=== PATIENT | female | born 1955 | race Caucasian/White ===

== ENCOUNTER 2017-04-15 18:23 | Observation (INO) | payer MEDICAID ==
[~2017-04-15] VITALS: Ht 157.5 cm; Wt 67.6 kg
[~2017-04-15 18:23] MED LIST: AEROCHAMBER1 DEV IH; ALBUTEROL2 PUFFS/17 IN; AZITHROMYCIN250 MG PO; BENADRYL 50MG C50 MG PO; CEFDINIR 300MG300 MG PO; CELEXA40 MG PO; HYDROCODONE1 TABLET PO; HYDROXYZINE HCL25 MG PO; MEDROL 4MG. DOSE4 MG PO; METOCLOPRAMIDE10 M2 PO; NAPROSYN500 M1 PO; NOMEDS *; OMEPRAZOLE40 MG PO; PHENERGAN 25MG.25 M1 PO; PHENERGAN 25MG.25 MG PR; PREDNISONE 10MG10 MG PO; PREDNISONE 20MG20 MG PO; PREVACID 30MG C30 M1 PO; ROBAFEN AC 10480 ML PO; ROBAXIN-750750 MG PO; ZANTAC 150150 MG PO
[2017-04-15 18:24] VITALS: BP 129/76
[2017-04-15] MEDS ORDERED: ASPIRIN 81MG TA81 MG PO (18:31)
--- NOTE | 2017-04-15 18:32 | Emergency Room Report ---
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 N Clinical Suspician of Infection? N Mental Status: 1 - Regular (Normal Baseline) Sepsis Risk:Low Sepsis Risk Have you (or family members/close friends) recently traveled outside the [place]? N If Yes, where/when: Have you had exposure to infectious disease within the past month? N TB? Other? Specify: Source patient, RN notes reviewed, old records Exam Limitations no limitations Comment pt with new onset of ant chest pain this am with pressure quality with sl inc with deep insp but no known ht disease, no card eval in past and no trauma/fever / Cardiac Chest Pain Chest pain indicative of cardiac Yes Timing/Duration 4-6 hours, constant Severity/Quality moderate, pressure Location central Chest Pain Radiation back Activities at Onset light activity Nitro Today/Relief no nitro taken today Aspirin Treatment Today no aspirin today Beta eris treatment today no beta eris taken Cardiac risk factors + family history, HTN controlled Prior Workup/Intervention no prior cardiac workup Timing/Duration this afternoon Severity moderate ALLERGIES Coded Allergies: codeine (06/20/16) ranitidine (06/20/16) Home Medications Reported Medications Lansoprazole (Prevacid) 30 MG PO DAILY ASPIRIN (Aspirin) 81 MG PO DAILY History Medical History General CAD? No Angina: No RI: No Hypertension? No Hyperlipidemia? No CHF? No DVT? No PE? No COPD? No Asthma? Yes Anemia? No GERD? No Gastric ulcers? No GI Bleed? No Hernia? Yes Thyroid Problems? No Hypothyroidism? No CVA? No Seizures? No Diabetes? No Insulin Dependent: No Insulin Pump: No Home FSBS? No Renal Insuffiency? No End Stage Renal Disease? No UTI? No Stones? No BPH? No GB Disease: Yes Nephritic Syndrome? No Asplenia? No Hepatitis? No Sickle Cell Disease? No Arthritis? No Migraines? No Cataracts? No Glaucoma? No MRSA? No HIV? No TB? No Anxiety? No Depression? No Cancer? Yes Site: UTERUS More? No Immunization Hx DT/Tetanus 1-4 YRS Flu Refused Pneumonia Refuses Surgical Hx Previous Surgery?Y GALLBLADDER TUBAL LIGATION HYSTERECTOMY Family History Family Hx Diabetes No CAD No Hypertension No Hyperlipidemia No Cancer Yes TB No Social History Smoking Hx Smoker: Current Every Day Smoker Tobacco: Yes Type Cigarettes Packs/day < 1 Pack Alcohol Alcohol: No Drugs none Review of Systems All Other Systems Reviewed and Negative Constitutional denies fever Eyes denies drainage ENT denies: ear discharge, epistaxis, throat pain. Respiratory see HPI, denies cough, shortness of breath, denies wheezing Cardiovascular see HPI, chest pain, denies palpitations, denies syncope Gastrointestinal denies abdominal pain, denies diarrhea, denies vomiting Genitourinary denies: dysuria, frequency, hesitancy, hematuria. Musculoskeletal denies back pain, denies joint pain, denies joint swelling, denies neck pain Skin denies rash Psychiatric/Neurological denies headache, denies seizure Physical Exam Vital Signs Vital Signs Date Time Temp Pulse Resp B/P Pulse O2 O2 Flow FiO2 Ox Delivery Rate 04/15 2055 98.2 68 18 133/67 97 04/15 2014 98.1 86 18 126/65 98 04/15 1935 98.1 72 18 122/66 94 04/15 1824 98.1 86 18 129/76 95 - WBC >12,000 or <4,000 or 10% bands? 2 or more SIRS Criteria Met? B/P:126/65 MAP:93 Creatinine >2.0? UA output<0.5ml/kg/hr for 2 hrs? Platelet count >100,000? Lactate >2.0mmol/1? INR >1.2 or PTT > than 60 sec? Evidence of Organ Dysfunction? Provider documented clinical suspician of infection? N Sepsis Criteria Count: 0 Sepsis Risk: Low Sepsis Risk General Appearance no apparent distress Eye Exam - bilateral eye PERRL, bilateral eye EOMI Ear, Nose, Throat normal ENT inspection Neck supple Respiratory Status No: respiratory distress. Lung Sounds bilateral: rhonchi. 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 No Results/Orders Laboratory Tests 04/15/171899: Sodium 142, Potassium 4.0, Chloride 104, Carbon Dioxide 28, BUN 13, Creatinine 1.1 H, Estimated Creat Clear 58, Estimated GFR (MDRD) 51 L, Glucose 105, Calcium 8.9, Total Bilirubin 0.4, AST 19, ALT 28, Alkaline Phosphatase 124 H, Creatine Kinase 152, CK-MB (CK-2) Rel Index 0.7, CK and CKMB Interp 1.0, Troponin I < 0.02, Total Protein 7.9, Albumin 4.0, Globulin 3.9 H, Albumin/ Globulin Ratio 1.0 L, D-Dimer 623 *H, WBC 8.5, RBC 5.37, Hgb 15.0, Hct 45.6, MCV 84.9, RDW 13.6, Plt Count 252, MPV 7.2 L, Gran % 66.4, Gran # 5.6, Lymphocytes % 25.3, Monocytes % 5.1, Eosinophils % 2.6, Basophils % 0.6, Lymphocytes # 2.2, Monocytes # 0.4, Eosinophils # 0.2, Basophils # 0.1, PUBS MCHC 32.8, MCH 27.9 Current Medication Orders Sig/Darline Start time Last Medication Dose Route Stop Time Status Admin Iopamidol 60 ML ONCE ONE 04/15 2115 UNV 04/15 IV 04/15 Sodium Chloride 20 ML ONCE ONE 04/15 2115 UNV 04/15 IV 04/15 Sodium Chloride 20 ML ONCE ONE 04/15 2115 UNV 04/15 IV 04/15 Sodium Chloride 10 ML ONCE ONE 04/15 2115 UNV 04/15 IV 04/15 Nitroglycerin 1 IN ONCE ONE 04/15 193 CAN TP 04/15 193 Nitroglycerin 0 .STK-MED ONE 04/15 1927 DC .ROUTE Aspirin 325 MG ONCE ONE 04/15 190 DC 04/15 PO 04/15 190 1856 Nitroglycerin 1 IN ONCE ONE 04/15 190 DC 04/15 TP 04/15 190 1857 Sodium Chloride 10 ML PRN PRN 04/15 190 AC IV 04/16 1848 Nitroglycerin 0 .STK-MED ONE 04/15 185 DC .ROUTE Aspirin 0 .STK-MED ONE 04/15 185 DC .ROUTE Orders Procedure Date/time Status DIET-NOTHING BY MOUTH 04/16 B Active Decision to admit 04/15 2112 Active CTA-CHEST 04/[address] SCAN REQ 04/15 2018 Complete D-DIMER 04/15 194 Complete 12 LEAD EKG-MICHAEL (INITIAL) 04/15 1848 Active ELECTROCARDIOGRAM REQUEST 04/15 184 Active IV SALINE LOCK 04/15 1848 Active COMPLETE METABOLIC PANEL 04/15 1848 Complete CBC WITH AUTO DIFF 04/15 1848 Complete CARDIAC ENZYMES 04/15 1848 Complete CHEST(2 VIEWS-NOT PORTABLE) 04/15 1827 Active 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 ST/[facility] chgs XRAY/CT/US XRAY/CT/US 1 XRAY chest XR interpretation by reviewed by me Xray Results abnormal (nonspecific) XRAY/CT/US [address] interpretation by discussed w/radiologist Time results known: 2108 CT Results abnormal (see report) Departure Departure Time of Disposition 1925 Disposition Still a Patient Clinical Impression Primary Impression: Chest pain Qualifiers: Chest pain type: precordial pain Qualified Code: R07.2 - Precordial pain Condition STABLE Referrals MAYE URENA (Family) ED Critical Care Critical Care No at 2113
[2017-04-15 19:10] LABS: LYMPH # 2.2 K/mm3 (0.7-4.5); LYMPH % 25.3 % (10-50.0)
[2017-04-15 19:34] LABS: BUN 13 mg/dL (7-18)
[2017-04-15 19:35] LABS: GFR (ESTIMATED) 51 ML/MIN (59-)
[2017-04-15 22:49] VITALS: BP 105/57
[2017-04-16 00:12] VITALS: BP 139/74
[2017-04-16 04:00] VITALS: BP 108/62
[2017-04-16 04:26] LABS: HEMOGLOBIN 13.8 g/dL (12.2-16.2); LYMPH # 2.3 K/mm3 (0.7-4.5); LYMPH % 31.4 % (10-50.0)
--- NOTE | 2017-04-16 05:30 | RADIOLOGY REPORT PS360 ---
CHEST(2 VIEWS-NOT PORTABLE) HISTORY: PAIN WITH INSPIRATION ORDERING PHYSICIAN: Jose M Jain MD PATIENT AGE: 61 years COMPARISON: 06/14/2015 FINDINGS: Cardiac size upper limits of normal. No evidence of CHF. There is coarsening of bronchovascular markings with hyperinflation consistent with COPD. There are atelectatic changes in the lung bases. There is mild biapical pleural thickening. No acute bony anomalies. IMPRESSION: COPD with chronic change and atelectasis. Mild cardiomegaly
--- NOTE | 2017-04-16 06:01 | RADIOLOGY REPORT PS360 ---
CTA-CHEST HISTORY: Shortness of breath with chest pain and pleurodynia CHEST PAIN DURING INSPIRATION ORDERING PHYSICIAN: Jose M Jain MD PATIENT AGE: 61 years TECHNIQUE: Helical acquisition obtained following the bolus administration of 60 mL of Isovue 370 followed by a saline bolus. Axial, sagittal, and coronal reformatted images are generated and reviewed. COMPARISON: None FINDINGS: PULMONARY ARTERIES:No pulmonary embolus evident. AORTA:No obvious aneurysm LUNGS:Centrilobular emphysematous changes which are diffuse. Opacities are present in the lingula and right lung base posteriorly may be due to atelectasis and/or infiltrate versus postinflammatory fibrotic change. PLEURAL SPACES:No significant effusion. No evidence of pneumothorax. HEART:Unremarkable. Normal heart size. No significant pericardial effusion. MEDIASTINAL AND HILAR STRUCTURES:No mediastinal or hilar mass evident. No dominant adenopathy. BONY STRUCTURES:No acute bony abnormalities apparent LYMPH NODES:There are scattered small nodes in the mediastinum UPPER ABDOMEN:Unremarkable IMPRESSION: 1. No evidence of pulmonary embolus or aortic aneurysm 2. Centrilobular emphysematous change with atelectasis or infiltrate within the lingula and right lung base posteriorly
--- NOTE | 2017-04-16 07:23 | PHARMACY CLINIC NOTE ---
Patient Demographics Patient Demographics Admission date: 04/15/17 Date: 04/16/17 Time: 0723 Allergies Coded Allergies: codeine (06/20/16) ranitidine (06/20/16) HEIGHT- FT: 5 IN: 2.00 K.586 VTE General Information Labs: Laboratory Tests 04/16 04/15 0415 1900 Hematology Hgb (12.2 - 16.2 g/dL) 13.8 15.0 Hct (37.0 - 47.0 %) 42.7 45.6 Plt Count (142 - 424 K/mm3) 204 252 Disclaimer The following section includes nursing documentation that has been pulled in for pharmacy review. Patient's VTE score: 1 Patient's VTE Risk: VERY LOW RISK Clinical trial participant? No VTE prophylaxis [id number] VTE prophylaxis ordered? Yes Type of prophylaxis/treatment: PRATIMA at 0723
[2017-04-16 07:44] VITALS: BP 110/66
--- NOTE | 2017-04-16 07:56 | CONSULT NOTE ---
See Addendum Standard Demographics Patient Demo Date of Consultation: 04/16/17 Referring Provider: Luan Jain MD Reason for Consultation: Chest pain PRIMARY DIAGNOSIS: CHEST PAIN Problem list Problem list: 1. Tobacco use 2. GERD A. History of endoscopy, on PPI and reglan 3. History of cardiac cath, about 10 yrs ago in [place], [place], reportedly normal History of present illness: History of present illness: 61-year-old white female with history of tobacco use and normal cardiac catheterization approximately 10-12 years ago was admitted for recurrent episodes of chest discomfort. She describes this as a chest pressure with shortness of breath. She denies radiation of symptoms but does note some discomfort in her back at the same time. She did note some nausea but denies diaphoresis, vomiting or diarrhea. She has had 2 episodes in the last 48 hours. The first one woke her from sleep about 1 AM yesterday morning and lasts for about 10 minutes. She did note some mild and increase in symptoms with deep breathing. Second episode occurred about 4 PM yesterday after picking up one of her children. Patient did come to the emergency room for further evaluation. Nitroglycerin paste was applied, but the patient states that did not seem to improve her symptoms. She denies any recent exertional chest pain or significant shortness of breath. Electrocardiogram shows sinus rhythm without acute change. Cardiac troponins have returned normal 2 overnight. Cardiology consulted for further evaluation. Patient denies history of diabetes, hypertension, hyperlipidemia or family history of heart disease. Past Medical History: General: Hypertension No CVA No Seizures No TB No COPD No Asthma Yes Diabetes No Insulin Dependent No Insulin Pump No Angina No PR No Hyperlipidemia No Urinary No Cancer Yes Rheumatic H.D. No Ulcers Yes MRSA No GB Disease Yes Past Surgical HX: Previous Surgery?Y GALLBLADDER TUBAL LIGATION HYSTERECTOMY Allergies Coded Allergies: codeine (06/20/16) ranitidine (06/20/16) Home medications: Reported Medications ERGOCALCIFEROL (VITAMIN D2) (Vitamin D2) 50,000 IUNITS PO WEEKLY #4 Albuterol Sulfate (Ventolin Hfa) 2 PUFFS IH Q4-6HP #18 Citalopram Hydrobromide (Citalopram HBr) 40 MG PO QHS #30 BUPROPION HCL (Bupropion HCl Sr) 100 MG PO BID #60 Lansoprazole (Prevacid) 30 MG PO DAILY ASPIRIN (Aspirin) 81 MG PO DAILY Current Medications: Current Medications Sodium Chloride 10 ML PRN PRN IV Nitroglycerin 1 IN Q8 TP (DC) Albuterol 2.5 MG Q6H6 INH Acetaminophen 650 MG Q4HP PRN PO Morphine Sulfate 2 MG Q4HP PRN IV Nicotine 21 MG DAILYP PRN TD Ondansetron HCl 4 MG Q6HP PRN IV Sodium Chloride 1,000 ML .[id number] IV Iopamidol 60 ML ONCE ONE IV (DC) Sodium Chloride 20 ML ONCE ONE IV (DC) Sodium Chloride 20 ML ONCE ONE IV (DC) Sodium Chloride 10 ML ONCE ONE IV (DC) Nitroglycerin 1 IN ONCE ONE TP (CAN) Nitroglycerin 0 .STK-MED ONE .ROUTE (DC) Aspirin 325 MG ONCE ONE PO (DC) Nitroglycerin 1 IN ONCE ONE TP (DC) Sodium Chloride 10 ML PRN PRN IV Nitroglycerin 0 .STK-MED ONE .ROUTE (DC) Aspirin 0 .STK-MED ONE .ROUTE (DC) Immunization HX DT/Tetanus 5-10 Years Flu Refused Pneumonia Never Had TB Test in last year No Family history Family HX Family Hx Insignificant No Diabetes No CAD No Hypertension No Hyperlipidemia No Cancer Yes TB No Social Hx: Smoking HX Tobacco Yes Type Cigarettes Packs/day < 1 PACK Are you/the child exposed to second-hand smoke: Yes Alcohol Alcohol: No Hx of Drug Use Drug Use? No Review of systems: Constitutional No: no symptoms reported. Respiratory SOB with excertion. Cardiovascular see HPI, chest pain Gastrointestinal/Abdominal nausea Genitourinary No: no symptoms reported. Musculoskeletal No: no symptoms reported. Neurological No: no symptoms reported. Exam: Admission Vital Signs: 1ST Vital Signs Result Date Time Pulse Ox 95 04/15 1824 B/P 129/76 04/15 1824 Temp 98.1 04/15 1824 Pulse 86 04/15 1824 Resp 18 04/15 1824 O2 Delivery ROOM AIR 04/159 Last Vital Signs: Vital Signs Result Date Time Pulse Ox 96 04/16 744 B/P 110/66 04/16 744 O2 Delivery ROOM AIR 04/16 744 Temp 98.2 04/16 744 Pulse 74 04/16 0744 Resp 20 04/16 744 Exam General appearance: alert, awake, no acute distress Neck: no carotid bruit, no JVD Cardiovascular: regular rate & rhythm, no murmur Respiratory: clear to auscultation, good air movement ABD: soft, no tenderness Extremities: moves all, no peripheral edema Neuro: alert, intact, oriented Laboratory data: Laboratory Tests 04/16/17414: Creatine Kinase 126, CK-MB (CK-2) Rel Index 0.7, CK and CKMB Interp 0.9, Troponin I < 0.02 04/16/17414: Triglycerides 119, Cholesterol 204 H, LDL Cholesterol 126.2, VLDL Cholesterol 23.8, HDL Cholesterol 54.0 04/16/17414: Sodium 141, Potassium 3.6, Chloride 106, Carbon Dioxide 29, BUN 10, Creatinine 0.9, Estimated Creat Clear 71, Estimated GFR (MDRD) 64, Glucose 104, Calcium 8.3 L, WBC 7.4, RBC 5.03, Hgb 13.8, Hct 42.7, MCV 85.0, RDW 13.6, Plt Count 204, MPV 7.7, Gran % 58.9, Gran # 4.4, Lymphocytes % 31.4, Monocytes % 6.2, Eosinophils % 2.7, Basophils % 0.8, Lymphocytes # 2.3, Monocytes # 0.5, Eosinophils # 0.2, Basophils # 0.1, PUBS MCHC 32.4, MCH 27.5 04/16/17 0050: Creatine Kinase 136, CK-MB (CK-2) Rel Index 0.7, CK and CKMB Interp 1.0, Troponin I < 0.02 04/15/17 1900: Sodium 142, Potassium 4.0, Chloride 104, Carbon Dioxide 28, BUN 13, Creatinine 1.1 H, Estimated Creat Clear 58, Estimated GFR (MDRD) 51 L, Glucose 105, Calcium 8.9, Total Bilirubin 0.4, AST 19, ALT 28, Alkaline Phosphatase 124 H, Creatine Kinase 152, CK-MB (CK-2) Rel Index 0.7, CK and CKMB Interp 1.0, Troponin I < 0.02, Total Protein 7.9, Albumin 4.0, Globulin 3.9 H, Albumin/ Globulin Ratio 1.0 L, D-Dimer 623 *H, WBC 8.5, RBC 5.37, Hgb 15.0, Hct 45.6, MCV 84.9, RDW 13.6, Plt Count 252, MPV 7.2 L, Gran % 66.4, Gran # 5.6, Lymphocytes % 25.3, Monocytes % 5.1, Eosinophils % 2.6, Basophils % 0.6, Lymphocytes # 2.2, Monocytes # 0.4, Eosinophils # 0.2, Basophils # 0.1, PUBS MCHC 32.8, MCH 27.9 Plan: Assessment: 1. Chest pain, shortness of breath with normal electrocardiogram and normal troponins 2. FREDDY score of one (recurrent chest pain). 2. Tobacco use 3. Gastroesophageal reflux disease Recommendations: 1. Recommend exercise Myoview or Lexiscan Myoview patient is unable to walk adequately. 2. Echocardiogram has been ordered by Dr. Jain. 3. Further Follow-up. at 3074
[2017-04-16] MEDS ORDERED: VITAMIN D50000 I1 PO (11:41)
[2017-04-16] MEDS ORDERED: VENTOLIN H0.09 MG/Ac IH (11:42)
[2017-04-16] MEDS ORDERED: CITALOPRAM HYDR40 MG PO (11:42)
[2017-04-16] MEDS ORDERED: BUPROPION ER100 MG PO (11:43)
--- NOTE | 2017-04-16 15:00 | RADIOLOGY REPORT PS360 ---
CARDIOLITE SPECT MYOCARDIAL PERFUSION SCAN, REST AND STRESS: EXERCISE STRESS [facility] REVIEW QGS EF AND WALL MOTION EVALUATION: QPS - PERFUSION EVALUATION HISTORY: CHEST PAIN, SMOKER DOSE: 10.70 mCi technetium 99m mibi intravenously at rest followed by 33.6 mCi technetium 99m mibi following the intravenous ministration of 0.4 mg of Lexiscan. Resting blood pressure is 143/76. Stress blood pressure 132/78. FINDINGS: Ejection fraction is calculated to be 81. Uniform myocardial activity at both stress and rest gated images calculate an ejection fraction of 81% with normal wall motion IMPRESSION: No scintigraphic evidence of Lexiscan-induced myocardial ischemia with normal ejection fraction and normal wall motion
--- NOTE | 2017-04-16 15:00 | RADIOLOGY REPORT PS360 ---
CARDIOLITE SPECT MYOCARDIAL PERFUSION SCAN, REST AND STRESS: EXERCISE STRESS [facility] REVIEW QGS EF AND WALL MOTION EVALUATION: QPS - PERFUSION EVALUATION HISTORY: CHEST PAIN, SMOKER DOSE: 10.70 mCi technetium 99m mibi intravenously at rest followed by 33.6 mCi technetium 99m mibi following the intravenous ministration of 0.4 mg of Lexiscan. Resting blood pressure is 143/76. Stress blood pressure 132/78. FINDINGS: Ejection fraction is calculated to be 81. Uniform myocardial activity at both stress and rest gated images calculate an ejection fraction of 81% with normal wall motion IMPRESSION: No scintigraphic evidence of Lexiscan-induced myocardial ischemia with normal ejection fraction and normal wall motion
[2017-04-16 15:53] VITALS: BP 142/74
--- NOTE | 2017-04-16 16:01 | Discharge Summary Standard ---
Demographics: Admit date: 04/15/17 Chief complaint: chest pain PRIMARY DIAGNOSIS: CHEST PAIN Allergies: Coded Allergies: codeine (06/20/16) ranitidine (06/20/16) History of present illness: History of present illness: 61-year-old white female with history of tobacco use and normal cardiac catheterization approximately 10-12 years ago was admitted for recurrent episodes of chest discomfort. She describes this as a chest pressure with shortness of breath. She denies radiation of symptoms but does note some discomfort in her back at the same time. She did note some nausea but denies diaphoresis, vomiting or diarrhea. She has had 2 episodes in the last 48 hours. The first one woke her from sleep about 1 AM yesterday morning and lasts for about 10 minutes. She did note some mild and increase in symptoms with deep breathing. Second episode occurred about 4 PM yesterday after picking up one of her children. Patient did come to the emergency room for further evaluation. Nitroglycerin paste was applied, but the patient states that did not seem to improve her symptoms. She denies any recent exertional chest pain or significant shortness of breath. Electrocardiogram shows sinus rhythm without acute change. Cardiac troponins have returned normal 2 overnight. Cardiology consulted for further evaluation. Patient denies history of diabetes, hypertension, hyperlipidemia or family history of heart disease. Past medical history: Family HX Diabetes No CAD No Hypertension No Hyperlipidemia No Cancer Yes TB No Immunization HX DT/Tetanus 5-10 Years Ago Flu Refused Pneumonia Never Had TB Test in last year No General CAD? No Angina: No VA: No Hypertension? No Hyperlipidemia? No CHF? No DVT? No PE? No COPD? No Asthma? Yes Anemia? No GERD? No Gastric ulcers? No GI Bleed? No Hernia? Yes Thyroid Problems? No Hypothyroidism? No CVA? No Seizures? No Diabetes? No Insulin Dependent: No Insulin Pump: No Home FSBS? No Renal Insuffiency? No UTI? No Stones? No BPH? No GB Disease: Yes Nephritic Syndrome? No Asplenia? No Hepatitis? No Sickle Cell Disease? No Arthritis? No Migraines? No Cataracts? No Glaucoma? No MRSA? No HIV? No TB? No Anxiety? No Depression? No Cancer? Yes Site: UTERUS More? No Past Surgical HX Previous Surgery?Y GALLBLADDER TUBAL LIGATION HYSTERECTOMY Current home meds: Reported Medications ERGOCALCIFEROL (VITAMIN D2) (Vitamin D2) 50,000 IUNITS PO WEEKLY #4 Albuterol Sulfate (Ventolin Hfa) 2 PUFFS IH Q4-6HP #18 Citalopram Hydrobromide (Citalopram HBr) 40 MG PO QHS #30 BUPROPION HCL (Bupropion HCl Sr) 100 MG PO BID #60 Lansoprazole (Prevacid) 30 MG PO DAILY ASPIRIN (Aspirin) 81 MG PO DAILY Social Hx: Smoking HX Tobacco Yes Type Cigarettes Packs/day < 1 PACK Are you/the child exposed to second-hand smoke: Yes Alcohol Alcohol: No Hx of Drug Use Drug Use? No Patien't marital status is Patient's support system is excellent Review of systems: Constitutional No: fever. Eyes No: drainage. Ears, Nose, Mouth, Throat No ear discharge, No epistaxis, No throat pain Respiratory shortness of breath. No: cough, wheezing. Cardiovascular see HPI, chest pain, No palpitations, No syncope Gastrointestinal/Abdominal No abdominal pain, No diarrhea, No poor appetite, No poor fluid intake Genitourinary No: dysuria, frequency, hesitancy, hematuria. Musculoskeletal No: back pain, joint pain, joint swelling, neck pain. Skin No: rash. Neurological No: headache, seizure disorder. Psychiatric No: depressed. Exam: Lab data for last 24 hours: Laboratory Tests 04/16/17414: Creatine Kinase 126, CK-MB (CK-2) Rel Index 0.7, CK and CKMB Interp 0.9, Troponin I < 0.02 04/16/17414: Triglycerides 119, Cholesterol 204 H, LDL Cholesterol 126.2, VLDL Cholesterol 23.8, HDL Cholesterol 54.0 04/16/17414: Sodium 141, Potassium 3.6, Chloride 106, Carbon Dioxide 29, BUN 10, Creatinine 0.9, Estimated Creat Clear 71, Estimated GFR (MDRD) 64, Glucose 104, Calcium 8.3 L, WBC 7.4, RBC 5.03, Hgb 13.8, Hct 42.7, MCV 85.0, RDW 13.6, Plt Count 204, MPV 7.7, Gran % 58.9, Gran # 4.4, Lymphocytes % 31.4, Monocytes % 6.2, Eosinophils % 2.7, Basophils % 0.8, Lymphocytes # 2.3, Monocytes # 0.5, Eosinophils # 0.2, Basophils # 0.1, PUBS MCHC 32.4, MCH 27.5 04/16/17 0050: Creatine Kinase 136, CK-MB (CK-2) Rel Index 0.7, CK and CKMB Interp 1.0, Troponin I < 0.02 04/15/17 1900: Sodium 142, Potassium 4.0, Chloride 104, Carbon Dioxide 28, BUN 13, Creatinine 1.1 H, Estimated Creat Clear 58, Estimated GFR (MDRD) 51 L, Glucose 105, Calcium 8.9, Total Bilirubin 0.4, AST 19, ALT 28, Alkaline Phosphatase 124 H, Creatine Kinase 152, CK-MB (CK-2) Rel Index 0.7, CK and CKMB Interp 1.0, Troponin I < 0.02, Total Protein 7.9, Albumin 4.0, Globulin 3.9 H, Albumin/ Globulin Ratio 1.0 L, D-Dimer 623 *H, WBC 8.5, RBC 5.37, Hgb 15.0, Hct 45.6, MCV 84.9, RDW 13.6, Plt Count 252, MPV 7.2 L, Gran % 66.4, Gran # 5.6, Lymphocytes % 25.3, Monocytes % 5.1, Eosinophils % 2.6, Basophils % 0.6, Lymphocytes # 2.2, Monocytes # 0.4, Eosinophils # 0.2, Basophils # 0.1, PUBS MCHC 32.8, MCH 27.9 Admission vital signs: 1ST Vital Signs Result Date Time Pulse Ox 95 04/15 1824 B/P 129/76 04/15 1824 Temp 98.1 04/15 182 Pulse 86 04/15 182 Resp 18 04/15 182 O2 Delivery ROOM AIR 04/15 2249 Exam General appearance: alert, awake Eyes: anicteric, PERRLA ENT: dry mucous membranes Neck: no carotid bruit, no JVD Cardiovascular: regular rate & rhythm, murmur Respiratory: clear to auscultation, no respiratory distress ABD: normal bowel sounds, soft Genitourinary: no hematuria Extremities: moves all, no peripheral edema Musculoskeletal: equal muscle strength Skin: dry 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 Follow up Follow up in office in: 2 WEEKS with: Nasir Montes De Oca MD Comment: will d/c on breo and asa 81 mg and see card and pcp at 1600
[2017-04-16 17:00] VITALS: BP 142/74
--- NOTE | 2017-04-17 17:07 | RADIOLOGY REPORT PS360 ---
PROCEDURE: 2-D M-mode and color Doppler study INDICATIONS FOR THE TEST: Chest painX COPDXX Heart Murmur Tobacco SmokingX Palpitations Fatigue Syncope Edema Hypertension Diabetes Mellitus Rheumatic Fever SOBXDOE Obesity Hyperlipidemia Family History HD Additional History PATIENT INFORMATION HEIGHT: 63 WEIGHT:149 GENDER: Female B/P:110/66 2-D/M-MODE INTERPRETATION: 2-D MEASUREMENTS OBSERVED VALUES IN CMS Right Ventricular Dimension (RVDd) 1.6 Interventricular Septum (Thickness)(IVsd) 1.0 Left Ventricular Internal Dimensions(LVIDd) 5.2 Left Ventricular Posterior Wall (Thickness)(LVPWd) 1.0 Aortic Root 3.4 Aortic Cusp Separation 2.1 Left Atrial Dimensions (LAD) 3.4 2D 1. Left atrium is mildly enlarged, left ventricle is normal size, there is borderline concentric left ventricular hypertrophy present, visually estimated ejection fraction 55% with no obvious regional wall motion abnormality, endocardial surfaces are somewhat poorly visualized. 2. The right atrium and right ventricle are normal size and contractility. 3. The aortic valve is minimally thickened and fibrosed. 4. The mitral and tricuspid valve are grossly normal. 5. Pulmonic valve is poorly visualized. 6. No significant pericardial effusion noted. DOPPLER INTERROGATION: Doppler interrogation of the aortic mitral and tricuspid valvular presence of mild aortic, mild mitral and tricuspid regurgitation, tricuspid regurgitant jet velocity insufficient for calculation of the right ventricular systolic pressure, grade 1 diastolic dysfunction seen without tissue Doppler evidence of raised left atrial pressure. CONCLUSION: 1. Technically difficult study because of the patient's factor and poor acoustic windows 2. Mildly enlarged left atrium, normal left ventricular size, borderline concentric left ventricular hypertrophy, visually estimated ejection fraction of 55% with no obvious regional wall motion abnormality, endocardial surfaces are somewhat poorly visualized. Grade 1 diastolic dysfunction seen without tissue Doppler evidence of raised left atrial pressure. 3. Mild aortic, mitral and tricuspid regurgitation. 4. No significant pericardial effusion noted.
== END 2017-04-16 16:40 | disposition home or self-care (01) ==
LOC: ER 18:23 → 2ND 21:16 → ER 21:16 → 2ND 22:22
PROVIDERS: Emergency Medicine
DX: R07.9 Chest pain, unspecified (principal)
CPT/HCPCS: A9502; G0378; J2785; Q9967